=== PATIENT | male | born 1960 | race Two or more races ===

== ENCOUNTER → 2018-07-03 | Day surgery (SDC) | payer OTHER ==
[~2018-07-03] MED LIST: ASPI81TA50 PO; ATORVASTATIN CA80 MG PO; CHOL10003 PO; FINA5TAB4 PO; IV RINGERS,LACTATED 1000ML 1,000 ML IV SCH; LIDOCAINE 1% PF 2 ML VIAL. ID PRN; LOSA1TAB25 PO; MIDAZOLAM HCL/PF 2 MG/2 ML VIAL. IV PRN; MULT1TAB52 PO; NAPR220C4 PO; OMEG1CAP6 PO; PROPOFOL 60 ML IV ONE; fentaNYL PF VIAL 100 MCG/2 ML VIAL IV PRN
[2018-07-03 13:17] VITALS: BP 141/85
--- NOTE | 2018-07-04 16:09 | PATHOLOGY ---
[facility] Accession Number: [id number] . 01 Material submitted: . PART A: DISTAL ESOPHAGEAL BIOPSY PART B: SPLENIC FLEXURE POLYP BIOPSY . 01 Clinical history: . Pre-OP DX: Hx colon polyps, family HX colon cancer, GERD Post-OP DX: Esophagitis, rule out Grey's . 02 Diagnosis: A. Esophageal biopsies, distal esophagus: - Segments of hyperplastic squamous esophageal mucosa showing focal ulceration and acute inflammation and focal basal squamous epithelial atypia, consistent with reflux esophagitis with ulceration. . B. Colon biopsies, splenic flexure polyps: - Diminutive tubular adenoma (1). - Mixed hyperplastic/adenomatous polyp (1). (JPM:abran; 07/04/2018) QMS/07/04/2018 . 02 Comment: There is no high-grade dysplasia or evidence of malignancy. . 02 Electronically signed: . Miguel Lovett MD, Pathologist NPI- [id number] . 01 Gross description: . A. Received in formalin labeled "[place], Frank, distal esophageal BX," are multiple segments of river soft tissue measuring 1.5 x 0.3 x 0.1 cm in aggregate dimensions. The specimen is filtered and entirely submitted in cassette A1. . B. Received in formalin labeled "[place], Frank, splenic flexure polyp BX," are 2 segments of river soft tissue measuring 0.5 x 0.2 x 0.2 cm in aggregate dimensions and ranging from 0.2 to 0.3 cm in maximum dimension. The specimen is submitted entirely in cassette B1. (TSD; 07/03/2018) TOB/TOB . 02 Pathologist provided ICD-10: D12.3, K63.5, K22.10 . 02 CPT . 163111, 211216 Specimen Comment: A courtesy copy of this report has been sent to Specimen Comment: [phone], . Specimen Comment: Report sent to and Specimen Comment: A duplicate report has been generated due to demographic updates. Performed at: 01 [facility] [address], [place] [id number] MD Willian Batista MD Phone: [phone] Performed at: 02 [facility] [address] [place], [place] [id number] MD Miguel Lovett MD Phone: [phone]
== END | disposition home or self-care (01) ==
LOC: SURG 11:05
PROVIDERS: ATTEND Internal Medicine Gastroenterology
DX: Z12.11 Encounter for screening for malignant neoplasm of colon (principal); K57.30 Diverticulosis of large intestine without perforation or abscess without bleeding; K64.0 First degree hemorrhoids; D12.3 Benign neoplasm of transverse colon; K21.0 Gastro-esophageal reflux disease with esophagitis; Z86.010 Personal history of colon polyps; Z80.0 Family history of malignant neoplasm of digestive organs; Z88.6 Allergy status to analgesic agent; Z95.5 Presence of coronary angioplasty implant and graft; N40.0 Benign prostatic hyperplasia without lower urinary tract symptoms; E78.00 Pure hypercholesterolemia, unspecified; I10 Essential (primary) hypertension; I25.10 Atherosclerotic heart disease of native coronary artery without angina pectoris; Z82.49 Family history of ischemic heart disease and other diseases of the circulatory system; Z82.3 Family history of stroke; Z72.89 Other problems related to lifestyle; Z87.891 Personal history of nicotine dependence; Z79.82 Long term (current) use of aspirin; Z79.899 Other long term (current) drug therapy; Z98.890 Other specified postprocedural states
CPT/HCPCS: 43239; 45380; 88305; J2704